=== PATIENT | female | born 1985 | race Caucasian/White ===

== ENCOUNTER 2024-08-30 10:47 | Outpatient (AMB) | payer MEDICAID, SELFPAY ==
[2024-08-30 11:10] VITALS: BP 136/88; PULSE 70; RESP 15; TEMP 36.6; O2SAT 97; BMI 26.8
--- NOTE | 2024-08-30 11:10 | AMB.GYNCLNOT ---
Vital Signs 08/30/24 11:10 Height 1.63 m Height Method Stated Weight 70.817 kg Weight Measurement Method Standing Scale BMI 26.8 BP 136/88 H Blood Pressure Source Automatic Cuff Blood Pressure Location Right Upper Arm Position Sitting Respiration 15 Pulse 70 Pulse Source Monitor Temp 97.9 F Temp Source Oral Pulse Oximetry (%) 97 Oxygen Delivery Method Room Air Allergies/Home Meds Allergies & Medications Allergies No Known Allergies Allergy (Unknown, Verified 08/30/24 11:11) Medication Reconciliation No Known Home Medications 08/30/24 [History Confirmed 08/30/24] Intake Visit Data Collection New Patient or Established: New Patient (never been to [facility]) Reason for Visit:: DISCUSS CONTROL Seen by Clinical Staff ONLY (RN/MA): No Sorter/Assay Tech Required: No Do You Feel Safe at Home: Yes Authorities Contacted: N/A PCP or OBGYN visit in last 3 months: No Hx Now: No Are you currently on any form of Control: Yes Last menstrual period: 08/09/24 Pain Present Currently: No Pain Scale Used: Rivera-Whelan/Numerical Pain scale:: 0 Smoking Status Smoking Status: Never smoker [employer]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 1. Little interest or pleasure in doing things: not at all 2. Feeling down, depressed, or hopeless: not at all Total score: 0 PHQ-9 3. Trouble falling or staying asleep, or sleeping too much: Not at all 4. Feeling tired or having little energy: Not at all 5. Poor appetite or overeating: Not at all 6. Feeling bad about yourself - or that you are a failure or have let yourself or your family down: Not at all 7. Trouble concentrating on things, such as reading the newspaper or watching television: Not at all 8. Moving or speaking so slowly that other people could have noticed? - Or the opposite - being so fidgety or restless that you have been moving around a lot more than usual: not at all 9. Thoughts that you would be better off or of hurting yourself in some way: Not at all Total score: 0 Source: Developed by Drs. Timothy Blackmon, Ellie Baig, Jenaro Yoo and colleagues, with an educational casey from [employer]. Depression screen completed yes Social History Living Situation History Marital Status: Lives With: Family Housing: House Tobacco History Smoking Status: Never smoker Second Hand Smoke Exposure: No Alcohol History Alcohol Intake: Never Domestic Abuse History Do You Feel Safe at Home: Yes History of Present Illness HPI Narrative Patient is a 39-year-old 2 para 2 here for IUD removal and insert consult. Patient has had a ParaGard for the last 9-1/2 months. Denies PAINS.. Patient is happy with the method and she has had no interval complaints with that. Patient is considering tubal ligation. She is sure about family size. Denies social habits. Denies surgeries. Denies chronic illness. Patient is in good shape she exercises regularly. Monogamous. 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 Denies breast complaints. No family history of breast cancer. Patient does have a concern about increased spider veins in her legs Review of Systems Review of Systems Systems Reviewed: All systems reviewed, normal except as documented Exam Narrative Physical exam: both breasts soft, non tender, no masses, nipples erect,no discharge. both breasts symmetrical. no skin changes General Limitations: no limitations General Appearance: alert, in no apparent distress, comfortable, cooperative, healthy appearing, well developed and well groomed Head Head exam: atraumatic, normocephalic and normal inspection Eye Eye exam: Present normal appearance, PERRL and EOMI ENT ENT exam: Present normal exam, normal oropharynx and mucous membranes moist Neck Neck exam: Present normal inspection, full ROM and trachea midline Chest Chest inspection: Present normal inspection and symmetric chest wall rise Resp Respiratory exam: Present normal lung sounds bilaterally Card Cardiovascular exam: Present regular rate, normal rhythm and normal heart sounds Abdominal Abdominal exam: Present soft and normal bowel sounds Extremities Extremities exam: Present normal inspection and full ROM Back Back exam: Present normal inspection and full ROM Neuro Neurological exam: Present alert, oriented X3 and CN II-XII intact Psych Psychiatric exam: Present normal affect and normal mood Skin Skin exam: Present warm, dry, intact and normal color Office Procedures OB Clinic LOC & Office Proc's Nursing/Assessment Patient Status: Initial/New Patient OB Clinic Nursing Assessment: Medication Reconciliation, Update PMH in EMR and Vital Signs OB Clinic Coordination of Care: Complex Care and Chronic Disease 1-5, Consent,records obtained, informed consent, Education Simp Pt/Fam and Staff clarify orders New Patient Charge New Patient Point Assignment: [id number] 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 Discussed starting multivitamin especially with vitamin E. Avoid caffeine products. Discussed regular breast exam. I scheduled screening mammo. Reviewed IUD signs and symptoms and effectiveness. I discussed removal and insert with patient. I had I also talked to patient about tubal ligation and schedule patient with OB for tubal consult. I discussed leaving the IUD and if she decides to have a tubal so that she is covered by contraception until tubal is done. If patient elects just to replace IUD then she will schedule with me Additional Plan Follow Up: 3 Weeks (BTL consult)
== END 2024-08-30 11:50 | disposition home or self-care (01) ==
LOC: HODSOBC 10:47
PROVIDERS: Supervising Provider Advanced Practice Midwife; Visit Provider Advanced Practice Midwife
DX: Z30.431 Encounter for routine checking of intrauterine contraceptive device (principal)
CPT/HCPCS: 99203; G0463

== ENCOUNTER 2025-01-30 10:57 | Outpatient (AMB) | payer MEDICAID, SELFPAY ==
[2025-01-30 11:17] VITALS: BP 136/91; PULSE 70; RESP 14; TEMP 36.6; O2SAT 97; BMI 26.6
--- NOTE | 2025-01-30 11:17 | GYNCLNT_ITS ---
Vital Signs 01/30/25 11:17 Height 1.63 m Height Method Stated Weight 70.76 kg Weight Measurement Method Standing Scale BMI 26.6 BP 136/91 H Blood Pressure Source Automatic Cuff Blood Pressure Location Left Upper Arm Position Sitting Respiration 14 Pulse 70 Pulse Source Monitor Temp 97.8 F Temp Source Oral Pulse Oximetry (%) 97 Oxygen Delivery Method Room Air Allergies/Home Meds Allergies & Medications Allergies No Known Allergies Allergy (Unknown, Verified 01/30/25 11:18) Medication Reconciliation No Known Home Medications 08/30/24 [History Confirmed 01/30/25] Intake Visit Data Collection New Patient or Established: Established Patient (seen at [facility] within 3 years) Reason for Visit:: IUD REMOVAL AND INSERTION Seen by Clinical Staff ONLY (RN/MA): No Geothermal Plant 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 Required: No Do You Feel Safe at Home: Yes Authorities Contacted: N/A PCP or OBGYN visit in last 3 months: Yes Hx Now: No Are you currently on any form of Control: Yes Last menstrual period: 01/16/25 Pain Present Currently: No Pain Scale Used: Rivera-Whelan/Numerical Pain scale:: 0 Smoking Status Smoking Status: Never smoker Immunizations Flu Vaccine in the Last 12 Months: Yes Flu Vaccine Exclusion Criteria: Already 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 1. Little interest or pleasure in doing things: not at all 2. Feeling down, depressed, or hopeless: not at all Total score: 0 PHQ-9 3. Trouble falling or staying asleep, or sleeping too much: Not at all 4. Feeling tired or having little energy: Not at all 5. Poor appetite or overeating: Not at all 6. Feeling bad about yourself - or that you are a failure or have let yourself or your family down: Not at all 7. Trouble concentrating on things, such as reading the newspaper or watching t elevision: Not at all 8. Moving or speaking so slowly that other people could have noticed? - Or the opposite - being so fidgety or restless that you have been moving around a lot more than usual: not at all 9. Thoughts that you would be better off or of hurting yourself in some way: Not at all Total score: 0 Source: Developed by Drs. Timothy Blackmon, Ellie Baig, Jenaro Yoo and colleagues, with an educational casey from [employer]. Depression screen completed yes Social History Living Situation History Lives With: Family Housing: House Tobacco History Smoking Status: Never smoker Second Hand Smoke Exposure: No Alcohol History Alcohol Intake: Never Domestic Abuse History Do You Feel Safe at Home: Yes History of Present Illness HPI Narrative 39-year-old 2 para 2 for IUD inserted removal. Patient's had ParaGard for 10 years. No problems with that method she denies any side effects or complications with the ParaGard. No ACHES. Her last period was January 13. X 5 days. History of irregular periods. Patient has no existence of medical history. And no social habits. She denies surgeries. Monogamous Review of Systems Review of Systems Systems Reviewed: All systems reviewed, normal except as documented Exam Narrative Physical exam: Perineum intact. No lesions. Vagina pink. IUD string was in the cervix. No inflammation noted. Uterus normal size and shape. Mid position. Abdomen was soft and nontender General Limitations: no limitations General Appearance: alert, in no apparent distress, comfortable, cooperative, healthy appearing, well developed and well groomed Head Head exam: atraumatic, normocephalic and normal inspection ENT ENT exam: Present normal exam, normal oropharynx and mucous membranes moist Chest Chest inspection: Present normal inspection and symmetric chest wall rise Resp Respiratory exam: Present normal lung sounds bilaterally Abdominal Abdominal exam: Present soft and normal bowel sounds Office Procedures OBC Clinic LOC & Office Proc's Nursing/Assessment Patient Status: Established Patient OB Clinic Nursing Assessment: Medication Reconciliation, Update PMH in EMR and Vital Signs OB Clinic Coordination of Care: Complex Care and Chronic Disease 1-5, Consent,records obtained, informed consent, Education Simp Pt/Fam, 1 Ins Authorization, Lab and Imaging orders, Results/Orders obtained and Staff clarify orders Miscellaneous Interventions: Pelvic no cultures Established Patient Charge Established Patient Point Assignment: 130 Established Patient Point Charge: EP Level 4 (120-155) In Clinic Bedside tests/procedures Bedside HCG: Yes In Clinic Procedures INSERTION OF ANY IUD DEVICE: Yes (LOT #[id number] EXP 10/2026) REMOVAL OF ANY IUD DEVICE: Yes Results Urine HCG Urine HCG Negative Last Edit by Cassandra Chawla MA on 01/30/25 11:24 Assessment & Plan Diagnosis / Problem List (1) Encounter for insertion of ParaGard IUD: Status: Acute Plan Consented for IUD inserted verbally and written. Reviewed method, side effects, danger signs and symptoms of IUD. Discussed string check monthly. And discussed signs of expulsion. No sex for 3 days. Condoms for 2 weeks. Return as needed. And return for Pap in 5 years. 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 Patient placed in lithotomy. Speculum was placed and visualization of the cervix with IUD string present. Betadine cleanse of the cervix x 3. IUD was removed from the cervix intact. A ParaGard. No bleeding. Tenaculum placed on the face of the cervix. Uterus was sounded to 7 cm. Mid position. ParaGard IUD was then inserted using the applicator. No bleeding noted. IUD strings shortened to 2-1/2 cm. Patient tolerated the procedure well no dizziness when she sat up. No complaints of pain.
== END 2025-01-30 11:46 | disposition home or self-care (01) ==
LOC: HODSOBC 10:57
PROVIDERS: Supervising Provider Advanced Practice Midwife; Visit Provider Advanced Practice Midwife
DX: Z30.433 Encounter for removal and reinsertion of intrauterine contraceptive device (principal); Z32.02 Encounter for pregnancy test, result negative
CPT/HCPCS: 58300; 58301; 81025; 99214; J7300; G0463